=== PATIENT | female | born 1970 | race Caucasian/White ===

== ENCOUNTER 2020-07-27 09:20 | Day surgery (SDC) | payer OTHER, SELFPAY ==
[2020-07-23 15:03] VITALS: BMI 32.0
--- NOTE | 2020-07-26 09:04 | HO.ANESPROP2 ---
Documented by User: Ami Fraga 07/26/20 09:05 HPI - Anesthesia Eval Consult details Narrative: 49yo F for Colonoscopy, Poss Balloon Dialation [facility] Past Medical History Medical History Asthma History of diverticulosis Hx of diverticulitis of colon Hx of renal calculi Hx of vertigo Surgical History Surgical History History of lumbar fusion Hx of tubal ligation Social History Social History Smoking Status: Current every day smoker Cigarettes Per Day: 5 Use of substances other than those prescribed or required for medical reasons: No Advance Directives Information Provided: No Meds Allergies Allergy/AdvReac Type Severity Reaction Status Date / Time sulfacetamide Allergy Unknown Unknown Verified 07/27/20 09:58 Home Medications Medication Instructions Recorded Confirmed Type meclizine 25 mg PO BID PRN 07/23/20 07/27/20 History Exam Exam Date and Time: July 26, 2020 0904 Height,Weight and Vital Signs: Height 5 ft 10 in Weight 101.151 kg Assessment and Plan Assessment Anesthesia Assessment: Chart Reviewed Documented by User: Tank Boyd 07/27/20 10:04 [facility] Past Medical History Medical History Asthma History of diverticulosis Hx of diverticulitis of colon Hx of renal calculi Hx of vertigo Surgical History Surgical History History of lumbar fusion Hx of tubal ligation Social History Social History Smoking Status: Current every day smoker Cigarettes Per Day: 5 Use of substances other than those prescribed or required for medical reasons: No Advance Directives Information Provided: No Meds Allergies Allergy/AdvReac Type Severity Reaction Status Date / Time sulfacetamide Allergy Unknown Unknown Verified 07/27/20 09:58 Home Medications Medication Instructions Recorded Confirmed Type meclizine 25 mg PO BID PRN 07/23/20 07/27/20 History Exam Airway Mallampati Class: II TM Dist: >3cm Neck ROM: Full
[2020-07-27 10:00] VITALS: BP 113/78; PULSE 81; RESP 16; TEMP 36; O2SAT 97
[2020-07-27] MEDS: Lactated Ringers 1,000 ML 100 ML IVCONT (10:20)
--- NOTE | 2020-07-27 10:47 | MHC.SHP ---
Pre-Procedural Eval Section A The patient is an INPATIENT: No Changes since office visit: No Cold of Flu in the past 2 weeks, No New Medical Problems, No Changes in Medication and No Patient answered all questions The History & Physical has been completed within 30 days and I have reviewed it.: Yes Section B Chief Complaint: Diverticulitis Allergies: Allergies Allergy/AdvReac Type Severity Reaction Status Date / Time sulfacetamide Allergy Unknown Unknown Verified 07/27/20 09:58 Plan Patient has been examined and remains a candidate for the planned procedure
[2020-07-27 11:15] VITALS: BP 90/41; PULSE 72; RESP 16; TEMP 36.1; O2SAT 98
--- NOTE | 2020-07-27 11:17 | PM.OP ---
Brief Operative Note Date of Service: 07/27/20 Pre-op diagnosis: diverticulitis Post-op diagnosis: same Procedure: colonoscopy Surgeon: Julito Pritchett Anesthesia: MAC Estimated blood loss (mL): 0 Condition: stable Disposition: PACU
[2020-07-27 11:30] VITALS: BP 108/63; PULSE 71; RESP 18; TEMP 36.1; O2SAT 99
--- NOTE | 2020-07-27 12:11 | OP_ITS ---
SURGEON: Julito Pritchett MD INDICATIONS: Diverticulitis and question of diverticular stricture. PREOPERATIVE DIAGNOSIS: POSTOPERATIVE DIAGNOSIS: PROCEDURE PERFORMED: Colonoscopy to the terminal ileum. ESTIMATED BLOOD LOSS: COMPLICATIONS: ANESTHESIA: ASSISTANTS: SPECIMENS: MEDICATIONS: Monitored anesthesia care. DESCRIPTION OF PROCEDURE: History and physical performed. The risks and benefits of the procedure were explained to the patient. Informed consent was obtained. The patient was placed in the left lateral decubitus position. A digital rectal exam was performed and was found to be normal. The Olympus pediatric video colonoscope was introduced into the rectum and advanced to the cecum without difficulty. The cecum was identified by transillumination, palpation, and identification of ileocecal valve. Examination was performed and the scope was removed. She tolerated the procedure well and was taken to recovery area in stable condition. FINDINGS: The terminal ileum was normal. The visualized colonic mucosa was normal. The quality of the prep was good. There was moderate diverticulosis extending from 40 to about 20 cm with no diverticular stricture or narrowing. Retroflexed examination showed some moderate-sized internal hemorrhoids. IMPRESSION: Diverticulosis. RECOMMENDATIONS: 1. Follow up as needed. 2. Repeat colonoscopy is recommended in 10 years for average risk individuals. MD HAFSA Mijares/JERE / [id number]
== END 2020-07-27 11:55 | disposition home or self-care (01) ==
PROVIDERS: PCP Internal Medicine; Visit Provider Internal Medicine Gastroenterology
PROC: 0DJD8ZZ Inspection of Lower Intestinal Tract, Via Natural or Artificial Opening Endoscopic (ICD-10-PCS; CPT 45378; principal; 2020-07-27 10:50)
DX: K57.30 Diverticulosis of large intestine without perforation or abscess without bleeding (principal); K64.8 Other hemorrhoids
CPT/HCPCS: 45378